=== PATIENT | male | born 1935 | race Caucasian/White ===

== ENCOUNTER 2024-01-02 19:14 | Emergency (ER) | payer MEDICARE, MEDICAID, SELFPAY ==
--- NOTE | ~2024-01-02 | CT_ITS ---
EXAMINATION: CT brain wo con DATE: 01/02/2024 20:05 INDICATION: Anticoagulated patient post unwitnessed fall TECHNIQUE: Computed tomography (CT) of the head was performed without intravenous contrast. Sagittal and coronal reconstructions were performed. The mA was adjusted according to patient size. Iterative reconstruction technique was employed. The dose-length product was 681.00 mGy-cm. COMPARISON: None FINDINGS: No fracture. No acute intracranial hemorrhage, acute infarction or abnormal extra axial fluid collect ion. There is moderate scattered white matter hypoattenuation consistent with chronic small vessel is chemic disease. Symmetric prominence of the sulci and ventricles consistent with moderate to severe a ge-appropriate diffuse cerebral volume loss. No mass/mass effect. Mild mucosal thickening the bilater al ethmoid and maxillary sinuses. The orbits and mastoid air cells are normal. Small amount of debris /cerumen at the left external auditory canal. IMPRESSION: 1. No fracture or acute intracranial process. 2. Age-related changes including moderate to severe diffuse volume loss and moderate scattered white matter hypoattenuation consistent with chronic small vessel ischemic disease. Reviewed, dictated and finalized at location A. IMPRESSION: 1. No fracture or acute intracranial process. 2. Age-related changes including moderate to severe diffuse volume loss and mod erate scattered white matter hypoattenuation consistent with chronic small vess el ischemic disease.
--- NOTE | ~2024-01-02 | XR_ITS ---
EXAMINATION: XR pelvis 1-2V DATE: 01/02/2024 19:55 INDICATION: Unwitnessed fall TECHNIQUE: An anteroposterior view of the pelvis was obtained. COMPARISON: None. FINDINGS: Bone alignment is normal. No fracture. Mild bilateral hip and sacroiliac osteoarthritis. Moderate to severe lower lumbar spondylosis. IMPRESSION: 1. No acute osseous abnormality. Reviewed, dictated and finalized at location A.
--- NOTE | ~2024-01-02 | CT_ITS ---
EXAMINATION: CT cervical spine wo con DATE: 01/02/2024 20:06 INDICATION: Anticoagulated patient post fall TECHNIQUE: Computed tomography (CT) of the cervical spine was performed without intravenous contrast. Automated exposure control and iterative reconstruction technique were employed. The dose-length pro duct was 380.60 mGy-cm. COMPARISON: None FINDINGS: Severe osteoarthritis at the atlantoaxial articulation. 2 additional 3 mm retrolisthesis C4 on C5. Ve rtebral body heights are normal. No fracture. Severe disc height loss at C4-C5 through C6-C7. Moderat e disc height loss at C3-C4 and mild disc height loss at C2-C3. Mild central canal stenosis at C3-C4 through C6-C7. There is also severe multilevel cervical uncovertebral osteoarthritis and moderate to severe facet osteoarthritis which contributes to moderate neural foraminal stenosis on the right at C 3-C4 through C6-C7 and on the left at C4-C5 and C5-C6. There is additional mild neural from stenosis at a few additional cervical levels. There is fusion across the right C3-C4 facet joint. Atherosclero tic calcification is at the bilateral carotid bulbs. Cervical soft tissues are otherwise unremarkable . Mild biapical pleural-parenchymal scarring. There is some smooth septal line thickening in the visu alized upper lungs, right greater than left consistent with mild pulmonary edema. IMPRESSION: 1. Severe cervical spondylosis with no acute osseous abnormality. 2. Mild pulmonary edema in the left upper lungs. Reviewed, dictated and finalized at location A.
[2024-01-02 19:16] VITALS: BP 126/84; PULSE 93; RESP 15; TEMP 36.8; O2SAT 98
--- NOTE | 2024-01-02 19:28 | PC.NURSE ---
Attempted to call [facility] without answer.
--- NOTE | 2024-01-02 19:44 | ED.FALL ---
HPI - Fall General Chief Complaint: Fall Stated Complaint: unwitnessed fall, back pain, poss HI Time Seen by Provider: 01/02/24 19:20 History of Present Illness HPI Narrative: 88-year-old male with a past medical history significant for hypertension, hyperlipidemia, dementia and schizophrenia. He does take Eliquis on review of the medical record brought by EMS. Patient presents today for a unwitnessed fall potentially. He was found on the ground at her nursing facility but not any acute distress not complaining anything with his normal mentation which is alert oriented x1 baseline. He states that he is not any pain anywhere but he was brought in for evaluation of a potential fall. Denies any headache, vision changes, abdominal pain, back pain, fever, chills, chest pain, shortness a breath. He is awake and oriented answering questions at his baseline. Denies any pain otherwise looks comfortable on the stretcher. No focal deficits appreciated. Related Data Allergies Allergy/AdvReac Type Severity Reaction Status Date / Time No Known Allergies Allergy Verified 01/02/24 19:23 Review of Systems Review of Systems: As reviewed above in HPI Exam Narrative: GENERAL: [Well-appearing, well-nourished, and in no acute distress.] HEAD: [Normocephalic, atraumatic.] EYES: [PERRLA and EOMI.] ENT: Nares clear, no rhinorrhea or epistaxis. Mucous membranes moist. NECK: Supple. CHEST: [Clear to auscultation. No respiratory distress.] HEART: [Regular rate and rhythm]. No murmur heard. [Normal peripheral pulses.] ABDOMEN: [Soft, nondistended], [nontender], [No rigidity or guarding] EXTREMITIES: Normal range of motion. [No edema.] SKIN: Warm, dry, no rash. NEURO: [No focal deficits]. Alert and oriented x1 which is baseline, no strength deficits or weakness. No ataxia in the arms or legs. PSYCH: [Normal mood and affect.] Course Vital Signs Vital signs: Vital Signs Temperature 36.8 C 01/02/24 19:16 Pulse Rate 93 01/02/24 19:16 Respiratory Rate 15 01/02/24 19:16 Blood Pressure 126/84 01/02/24 19:16 Pulse Oximetry 98 01/02/24 19:16 Oxygen Delivery Room Air 01/02/24 19:16 Temperature 36.8 C 01/02/24 19:16 Pulse Rate 93 01/02/24 19:16 Respiratory Rate 15 01/02/24 19:16 Blood Pressure 126/84 01/02/24 19:16 Pulse Oximetry 98 01/02/24 19:16 Oxygen Delivery Room Air 01/02/24 19:16 MDM - Fall MDM Narrative Medical decision making narrative: 88-year-old male with a history of hypertension hyperlipidemia, dementia and schizophrenia. He does take Eliquis for unclear reasons on review of the medications from his [facility]. Presents today after he was found on the ground with a potential fall. He has no acute complaints otherwise states he feels fine without any pain is head, chest, belly or back. No weakness or sensory, motor deficits appreciated on examination. He has normal reassuring vital signs. No evidence of trauma or hematoma formation of his head or neck. He states he is not sure if he fell but he was found on the ground but not in any apparent pain or discomfort, worsening comfort. CT head, CT cervical spine and a pelvis x-ray was obtained. He is not any pain does not require any kind of medications at this time. Patient's CT scans were independently reviewed and interpreted by radiology. He has no acute intracranial process, no cervical fractures or dislocations. Pelvis without any fractures or dislocations. He was re-evaluated multiple times without any pain or other symptoms. He is stable for discharge back to his long-term facility at this time. Medical Records Attestation: I reviewed the patient's medical records. Lab Data Attestation: I reviewed the patient's lab results. Imaging Data Attestation: I personally reviewed and interpreted this imaging study as follows: Radiologist's impression: Impressions Pelvis X-Ray 01/02/24 19:56 IMPRESSION: 1. No ac
--- NOTE | 2024-01-02 21:02 | PC.NURSE ---
Codie JUAREZ from [facility] received report. She reported that he is wheelchair bound and is incapable of transferring on his own. She states they think he was attempting to get back in bed from his wheelchair and that is how he fell. She is updated on scan results and ETA for ambulance to go back home.
[2024-01-02 21:11] VITALS: BP 132/92; PULSE 76; RESP 15; O2SAT 97
== END 2024-01-02 23:45 ==
PROVIDERS: Emergency Provider Student in an Organized Health Care Education/Training Program; PCP Internal Medicine
DX: Z04.3 Encounter for examination and observation following other accident (principal); I10 Essential (primary) hypertension; E78.5 Hyperlipidemia, unspecified; F03.90 Unspecified dementia, unspecified severity, without behavioral disturbance, psychotic disturbance, mood disturbance, and anxiety; F20.9 Schizophrenia, unspecified; M47.812 Spondylosis without myelopathy or radiculopathy, cervical region; W19.XXXA Unspecified fall, initial encounter
CPT/HCPCS: 70450; 72125; 72170; 99284

== ENCOUNTER 2025-02-20 20:13 | Emergency (ER) | payer MEDICARE, MEDICAID, SELFPAY ==
[2025-02-20] VITALS (15 sets, daily range): BP systolic 97–123; BP diastolic 61–83; PULSE 90–113; RESP 14–22; TEMP 36.6; O2SAT 95–97
--- NOTE | ~2025-02-20 | CT_ITS ---
CT cervical spine wo con HISTORY: fall COMPARISON: 01/02/2024 TECHNIQUE: Axial images of the cervical spine were obtained. Multiplanar reconstruction in the coronal, sagittal and axial reformats to evaluate for cervical fracture. FINDINGS: The images demonstrate no acute fracture or paravertebral soft tissue swelling. Severe multilevel degenerative changes with disc space narrowing and uncovertebral hypertrophy from C3-C4 to C6-C7. There is facet joint arthropathy contributing to foraminal narrowing. No significant central canal stenosis. The visualized aspect of the upper lungs are clear. IMPRESSION: No acute fracture or subluxation. Severe degenerative changes from C3-C4 through C6-C7. This is unchanged when compared to previous study. All CT scans at this facility are performed using low dose modulation techniques as appropriate to perform exam including the following: automated exposure control; adjustment of the mA and/or kV according to patient size (this includes techniques or standardized protocols for targeted exams where does is matched to indication/reason for exam; i.e. extremities or head); use of iterative reconstruction technique). Reviewed, dictated and finalized at location [facility]. STHESIOLOGIST IMPRESSION: No acute fracture or subluxation. Severe degenerative changes from C3-C4 through C6-C7. This is unchanged when co mpared to previous study. All CT scans at this facility are performed using low dose modulation techniqu es as appropriate to perform exam including the following: automated exposure c ontrol; adjustment of the mA and/or kV according to patient size (this includes techniques or standardized protocols for targeted exams where does is matched to indication/reason for exam; i.e. extremities or head); use of iterative sia nstruction technique).
--- NOTE | ~2025-02-20 | CT_ITS ---
CT brain wo con HISTORY:fall, head injury COMPARISON: 01/02/2024. TECHNIQUE: Axial images were obtained of the head without intravenous contrast. FINDINGS: No acute intracranial hemorrhage, mass effect or midline shift. No extra-axial fluid collections. There is generalized atrophy and chronic white matter microangiopathic changes.Visualized paranasal sinuses and mastoid air cells are clear. IMPRESSION: No acute intracranial hemorrhage or extra axial fluid collections. 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 Reviewed, dictated and finalized at location [facility]. IT PROFESSIONAL IMPRESSION: No acute intracranial hemorrhage or extra axial fluid collections. 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
--- OUTSIDE RECORDS SUMMARY | 2025-02-20 22:10 | XMS_ITS | Clinical Summary ---
Author Organization [facility] Address [address] [place] [address] Care Team Providers Care Keg Washer Name Role Phone Bright Marin MD Primary Care Provider Source Comments [facility],non-owned Affiliates and Associated Physician Practices is amultiple site organization consisting of ambulatory clinics and hospital sitesin [place], [place] and [place]. This disclosure is being madepursuant to the Care Everywhere program and may not contain all information available regarding this patient. Last updated 17.[facility] Allergies No known active allergies Medications * Be aware that medications may not be up to date on this document. Alwaysverify current medications with the patient. SITagliptin (JANUVIA) 50 MG tablet Take 1 tablet by mouth once daily 90 tablet 1 0 Active finasteride (PROSCAR) 5 MG tablet Take 5 mg by mouth once daily Active apixaban (ELIQUIS) 2.5 MG tablet Take 1 (one) tablet by mouth 2 times daily 60 tablet 2 1 Active Additional Information Patient not taking.Reported on 06/06/2020 atorvastatin (LIPITOR) 10 MG tablet Take 1 (one) tablet by mouth at bedtime 30 tablet 2 1 Active QUEtiapine (SEROQUEL) 25 MG tablet Take 1 (one) tablet by mouth 2 times daily 1 Active carvedilol (COREG) 6.25 MG tablet Take 1 (one) tablet by mouth 2 times daily with morning and evening meal 1 Active magnesium oxide (MAG-OX) 400 MG tablet Take 1 (one) tablet by mouth 2 times daily 1 Active thiamine (VITAMIN B-1) 100 MG tablet Take 1 (one) tablet by mouth once daily 1 Active Active Problems Problem Noted Date Diagnosed Date Weakness 06/06/2020 Hepatitis 06/06/2020 Hypotension 06/06/2020 Fall 06/04/2020 Hypokalemia 06/02/2020 Altered mental status 06/02/2020 TARIK (acute kidney injury) 06/02/2020 Shortness of breath 04/26/2020 Atrial fibrillation with rapid ventricular respo nse 04/26/2020 Bilateral edema of lower extremity 04/26/2020 Acute renal failure 06/10/2019 Hypoglycemia 05/14/2019 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 (FLUZONE HIGH-DOSE QUADRIVALENT; 65Y+), 0.7 ML (HD-IIV4) 05/16/2019(Deferred: Patient Refused - States he will get this at his pharmacy) Social History Tobacco Use Types Packs/Day Years Used Date Smoking Tobacco: Former Smokeless Tobacco: Never Alcohol Use Standard Drinks/Week Comments Not Currently 0 (1 standard drink = 0.6 oz pur e alcohol) Sex and Gender Information Value Date Recorded Sex Assigned at Not on file Legal Sex Male 2:49 PM [employer] Gender Identity Not on file Sexual Orientation Not on file Last Filed Vital Signs Vital Sign Reading Time Taken Comments Blood Pressure 88/64 06/17/2020 3:38 PM [employer] Pulse 72 06/17/2020 3:38 PM [employer] Temperature 36.6 C (97.8 F) 06/17/2020 3:38 PM [employer] Respiratory Rate 20 06/17/2020 3:38 PM [employer] Oxygen Saturation 99% 06/17/2020 3:38 PM [employer] Inhaled Oxygen Concentration - - Weight 61.2 kg (134 lb 14.4 oz) 021 11:42 PM [employer] Height 167.6 cm (5' 6) 06/06/2020 11:4 2 PM [employer] Body Mass Index 21.77 06/06/2020 11:42 PM [employer]ANT Plan of Treatment Health Maintenance Due Date Last Done Comments DTAP/TDAP/TD VACCINES (1 - Tdap) 1956 PNEUMOCOCCAL VACCINE 50+ (1 of 1 - PCV) 1987 ZOSTER VACCINE (1 of 2) 1987 Respiratory Syncytial Virus (RSV) Vaccine Pt: or over 60 yrs (1 - 1-dose 75+ series) 2012 DEPRESSION SCREENING 04/10/2024 COVID-19 VACCINE (1 - 2023-2 5 season) 2024 INFLUENZA VACCINE (#1) 2024 HEPATITIS B VACCINE Aged Out No longe r eligible based on patient's age to complete this topic HIB VACCINE Aged Out No longer eligi ble based on patient's age to complete this topic HPV VACCINE Aged Out No longer eligi ble based on patient's age to complete this topic MENINGOCOCCAL (Group B) VACC INE SHARED DECISION-MAKING Aged Out No longer eligibl e based on patient's age to complete this topic MENINGOCOCCAL GROUPS A/C/Y/W VACCINE Aged Out No longer eligible b ased on patient's age to complete this topic Insurance [employer] [facility] Address: [id number] [place] [address] MEDICARE Advance Directives * Full Code (Latest Code Status on File) Date Activated Date Inactivated Comments 06/09/2020 3:34 AM 06/17/2020 9:53 PM * Full Code Date Activated Date Inactivated Comments 06/07/2020 1:23 AM 06/09/2020 3:34 AM * Full Code Date Activated Date Inactivated Comments 06/02/2020 11:36 AM 06/05/2020 2:12 PM * Full Code Date Activated Date Inactivated Comments 06/02/2020 11:31 AM 06/02/2020 11:36 AM * Full Code Date Activated Date Inactivated Comments 04/26/2020 10:48 PM 05/01/2020 7:02 PM Care Teams Keg Washer Relationship Specialty Start Date End Date Bright Marin MD PCP - General Internal Medicine 03/15/19
--- OUTSIDE RECORDS SUMMARY | 2025-02-20 22:10 | XMS_ITS | Data Portability ---
Author Organization [place] - [facility] [email or web address], Main Office Address [address] [place] [address] Assessment No assessment recorded. Plan of Treatment Reminders Order Date Submit Date Provider Last Modified By Organization Details Last Modified Time Details Appointments None recorded. Lab culture, urine + sensitivity 2022 023 [facility] ([facility]), [address] [place], [address], 3 12:09:56 Referral None recorded. Procedures foreskin manipulatio n including lysis of preputial adhesions and stretching (PROC) 2022 023 JOSÉ MIGUEL Not available 3 05:01:45 Surgeries None recorded. Imaging None recorded. Medication Orders levofloxaci n 500 mg tablet 2022 023 [email or web address] Not available 3 12:55:31 lidocaine HCl 20 mg/mL (2 %) injection solution 2022 023 [email or web address] Not available 3 11:59:26 nystatin-tr iamcinolone 100,000 unit/g-0.1 % topical cream 2022 023 [email or web address] Not available 3 12:55:31 Augmentin 875 mg-125 mg tablet 2022 023 [facility] #[id number], [address], [place], [address], 3 10:37:26 Patient TargetsNo targets recorded. Patient InstructionsNo instructions recorded. Reason for Referral None Reported. Results Created Date Observation Date Name Description Value Unit Range Abnormal Flag Note LastModifiedBy Organization Detail LastModifiedTime 11/20/19 22 11/19/2021 CT, abdom en + pelvi s, w/o contr ast No observ ation record ed. [id number] [facility] [address] [place], [address], 06/08/2022 21:49:08 11/20/19 22 11/19/2021 US, renal No observ ation record ed. [id number] [facility] [address] [place], [address], 06/08/2022 21:49:08 Result Notes None recorded. Problems Name Problem SNOMED Code Status Onset Date Resolution Date Notes Provider Name and Address Organization Details Recorded Time Penile swelling 205799012 Active 2022 Jim Stevens NP [address], [place], [address], [employer] [facility] [employer] [facility] 3 10:30:06 Cellulitis of groin 01315384 Active 2022 Jim Stevens NP [address], [place], [address], [employer] [facility] [employer] [facility] 3 10:30:14 Pyuria 4125065 Active 2022 Jim Stevens NP [address], [place], [address], [employer] [facility] [employer] [facility] 3 10:42:17 Acute urinary tract infection 984502182 Active 2022 Jim Stevens NP [address], [address], [place], [address], [employer] [facility] [employer] [facility] 3 17:11:28 Urinary tract infection caused by Pseudomonas 4008039420206 02 Active 2022 Jim Stevens NP [address], [place], [address], [employer] [facility] [employer] [facility] 3 17:11:47 Paraphimosi s 16496598 Active 2022 Jim Stevens NP [address], [place], [address], [employer] [facility] [employer] [facility] 3 12:06:21 Balanitis 76205678 Active 2022 Jim Stevens NP [address], [place], [address], [employer] [facility] [employer] [facility] 3 12:07:15 Retention of urine 679794128 Active 2022 Jim Stevens NP [address], [place], [address], [employer] [facility] [employer] [facility] 3 14:56:42 Penile hypospadias 924062895 Active 2022 Jim Stevens NP [address], [place], [address], [employer] [facility] [employer] [facility] 3 14:57:03 Problem Notes None recorded. Medical Equipment None Reported. Allergies No known drug allergies Medications Name Sig Start Date Stop Date Status Note LastModified by Organization Details LastModified Time lidocaine 2% viscous soln active Not Available Not Available Not Available quetiapine 25 mg tablet 12/20 completed Not Available Not Available Not Available lidocaine HCl 10 mg/mL (1 %) injection solution 12/20 completed Not Available Not Available Not Available carvedilol 6.25 mg tablet TAKE 1 TABLET BY MOUTH TWICE DAILY active Not Available Not Available No t Available doxycyclin e hyclate 100 mg capsule 12/20 completed Not Available Not Available Not Available atorvastat in 10 mg tablet active Not Available Not Available Not Available Lidocaine Viscous 2 % mucosal solution active Not Available Not Available Not Available fluconazol e 150 mg tablet 12/20 completed Not Available Not Available Not Available cephalexin 250 mg capsule Take 1 capsule every day by oral route for 30 days. active Start after full course of cipro for ppx Not Available Not Available Not Available midodrine 5 mg tablet TAKE 1 TABLET BY MOUTH THREE TIMES DAILY active Not Available Not Available No t Available thiamine HCl (vitamin B1) 100 mg tablet Take by oral route. 2021 active Not Available Not Available Not Avai lable valacyclov ir 500 mg tablet 12/20 completed Not Available Not Available Not Available ciprofloxa marcus 500 mg tablet Take 1 tablet every 12 hours by oral route for 10 days. active Not Available Not Available No t Available ceftriaxon e 1 gram solution for injection 12/20 completed Not Available Not Available Not Available methenamin e hippurate 1 gram tablet Take 1 tablet twice a day by oral route for 90 days. active Not Available Not Available No t Available magnesium oxide 400 mg (241.3 mg magnesium) tablet Take by oral route. 2021 active Not Available Not Available Not Avai lable Vitamin C 1,000 mg tablet Take 1 tablet twice a day by oral route for 90 days. active Not Available Not Available No t Available gentamicin 0.3 % eye drops active Not Available Not Available Not Available cephalexin 500 mg capsule active Not Available Not Available Not Available nystatin-t riamcinolo ne 100,000 unit/g-0.1 % topical cream APPLY TO THE AFFECTED AREA(S) BY TOPICAL ROUTE 2 TIMES PER DAY IN THE MORNING AND EVENING for 14 days active Not Available Not Available No t Available lidocaine HCl 20 mg/mL (2 %) injection solution Take 15 mL by injectio n route. 2022 active Not Available Not Available Not Avai lable levofloxac in 500 mg tablet Take 1 tablet every 24 hours by oral route for 10 days. active Not Available Not Available No t Available levofloxac in 750 mg tablet active Not Available Not Available Not Available diltiazem 30 mg tablet active Not Available Not Available Not Available ferrous sulfate 325 mg (65 mg iron) tablet,del ayed release Take by oral route. 2021 active Not Available Not Available Not Avai lable cefdinir 300 mg capsule active Not Available Not Available Not Available clotrimazo le 1 % topical cream 12/20 completed Not Available Not Available Not Available finasterid e 5 mg tablet TAKE 1 TABLET BY MOUTH EVERY DAY active Not Available Not Available No t Available amoxicilli n 875 mg-potassi um clavulanat e 125 mg tablet Take 1 tablet every 12 hours by oral route for 10 days. active Not Available Not Available No t Available escitalopr am 10 mg tablet active Not Available Not Available Not Available escitalopr am 20 mg tablet active Not Available Not Available Not Available cholestyra mine (with sugar) 4 gram powder for susp in a packet active Not Available Not Available Not Available nitrofuran toin monohydrat e/macrocry stals 100 mg capsule 12/20 completed Not Available Not Available Not Available Januvia 50 mg tablet TAKE 1 TABLET BY MOUTH EVERY DAY active Not Available Not Available No t Available Anecream 4 % topical active Not Available Not Available No t Available Xifaxan 550 mg tablet active Not Available Not Available Not Available Eliquis 2.5 mg tablet TAKE 1 TABLET BY MOUTH TWICE DAILY active Not Available Not Available No t Available meropenem 500 mg/50 mL in 0.9% sodium chloride intravenou s piggyback 12/20 completed Not Available Not Available Not Available Firvanq 50 mg/mL oral solution active Not Available Not Available Not Available Vitals Date Recorded Body height Provider Name an d Address Organization Details Last Updated DateTime 08/19/2022 165.1 cm Cindy Alex [facility] 08/19/2022 09:56:27 Date Recorded Oxygen saturation Oxygen saturation in Arterial blood by Pulse oximetry Heart rate Body temperature Provider Name and Address Organization Details Last Updated DateTime 08/19/2022 91 % 91 % 39 /min 97.7 [degF] Carlos Stevenson [facility] [employer] [facility] 3 10:04:33 Date Recorded Body height Body temperature Oxygen saturation Oxygen saturation in Arterial blood by Pulse oximetry Heart rate Provider Name and Address Organization Details Last Updated DateTime 3 165.1 cm 97.2 [degF] 99 % 99 % 59 /min Carlos Stevenson [facility] [employer] [facility] 3 11:10:20 Date Recorded Body height Oxygen saturation Oxygen saturation in Arterial blood by Pulse oximetry Body temperature Heart rate Systolic And Diastolic Provider Name and Address Organization Details Last Updated DateTime 3 165.1 cm 97 % 97 % 98.1 [degF] 69 /min 94/56 mm[Hg] Carlos Stevenson [facility] [employer] [facility] 3 11:58:09 Date Recorded Body height Oxygen saturation Oxygen saturation in Arterial blood by Pulse oximetry Heart rate Body temperature Systolic And Diastolic Provider Name and Address Organization Details Last Updated DateTime 2 165.1 cm 94 % 94 % 113 /min 98.1 [degF] 131/88 mm[Hg] Not Available [facility] 3 21:48:25 Social History Question Answer Notes LastModified by Organizat ion Details LastModified Time Tobacco Smoking Status Never Smoker Not Available [facility] 06/08/2022 21:48:09 What Is Your Level Of Caffeine Consumption? None [id number] Information not available 06/08/2022 What Was The Date Of Your Most Recent Tobacco Screening? 09/19/2022 Information not available 09/19/2022 Has Tobacco Cessation Counseling Been Provided? No [id number] Information not available 06/08/2022 Sex: Unknown Functional Status Question Answer Note LastModified by Organizat ion Details LastModified Time Do you use any illicit or recreational drugs? No [id number] Information not available 06/08/2022 Do you or have you ever used any other forms of tobacco or nicotine? No [id number] Information not available 06/08/2022 What is your level of alcohol consumption? None [id number] Information not available 06/08/2022 Mental Status None recorded. Family History Nothing Reported. Medical History Condition Response HEART DISEASE/HEART PROBLEMS Y DIABETES, TYPE Y KIDNEY DISEASE Y UTI Y URINARY/BLADDER/KIDNEY PROBLEMS Y USE OF BLOOD THINNERS Y HYPERTENSION Y Past Encounters Encounter ID Performer Location Encounter Start Date Encounter Closed Date Diagnosis/Indication Diagnosis SNOMED-CT Code Diagnosis ICD10 Code Diagnosis IMO Codes Diagnosis Note [id number] Jim Stevens NP [facility] [address] [address] 12/20/2021 00:00:00 12/20/2021 15:19:20 [id number] Jim Stevens NP [facility] [address] [id number] 08/19/2022 09:54:46 08/19/2022 10:38:36 Penile swelling 877041860 N48.89 Cellulitis of groin 8836 1008 L03.314 keep groing elevated as much as possible to help reduce swelling. Start Augmentin to cover for suspected uti and cellulitis . Sending urine for culture. Follow-up next week for recheck. Pyuria 3051390 R82.[id number] [facility] [address] [address] 09/02/2022 10:56:07 09/02/2022 12:08:41 Penile swelling 354457916 N48.89 Paraphimosis 50313949 N4 7.2 Successful ly reduced in office. Nursing staff to always replace foreskin after it has been retracted. Follow-up in 2 weeks for re-check. Acute urin madhuri tract infection 225577689 N39.0 UA is still purulent. Repeat course of levofloxac in for 10 days. Balanitis 75948923 N48.1 Continue cream for balanitis. [id number] Jim Stevens NP [facility] [address] [id number] 09/19/2022 11:44:29 09/19/2022 12:39:21 Retention of urine 337126346 R33.9 Penile hypospadias 95083 8000 Q54.1 Penile pain and swelling. Has been on Augmentin and levaquin without much improvemen t. Plan for suprapubic tube placement to bypass urethra. Will need to come off Eliquis 3 days prior to surgery. Will need to obtain clearance. Pre-op lab orders placed. Health Concerns Section Related Observation LastModified by Organization Detai ls LastModified Time None Recorded Concern Status LastModified by Organization Details LastModified Time None Recorded Advance Directives Directive None Recorded Payers Insurance Date Sequence Insurance Name Policy Number Policy Lazo Covered Member ID Lazo Member ID Guarantor Name 01/10/2025 2 [facility] (MEDICAID HMO) [id number] Shaw Fisher [id number] Shaw Fisher 01/10/2025 1 [place] Shaw Fisher [id number] Shaw Fisher 10/16/2023 2 [place] Shaw Fisher [id number] Shaw Fisher 01/10/2025 3 [place] [facility] OF PUBLIC AID Shaw Fisher [id number] Shaw Fisher Notes Date Note Type Note Provider Name and Address Organization Details Recorded Time 08/19/2022 text/html ROS as noted in the [facility] 08/19/22Patient presents to the office with c/o of one month hx of penile pain, swelling, and cloudy urine. He denies any abdominal pain, fevers, or hematuria. Upon physical exam penis is swollen and scrotum is erythematous. Iatrogenic hypospadias noted. Patient is very tender on exam. No bleeding from urethra noted. Cath draining yellow purulent urine. Jim Stevens NP [address], [place], [address], [employer] 08/19/2022 10:42:50 09/02/2022 text/html ROS as noted in the [facility] 08/19/22Patient presents to the office with c/o of one month hx of penile pain, swelling, and cloudy urine. He denies any abdominal pain, fevers, or hematuria. Upon physical exam penis is swollen and scrotum is erythematous. Iatrogenic hypospadias noted. Patient is very tender on exam. No bleeding from urethra noted. Cath draining yellow purulent urine. 09/02/2022atient returns to the office for follow-up on uti and penile swelling. Patient had pseudomonas uti that was treated levofloxacin. He has been using nystatin/triamcino lone for balanitis with moderate improvement in swelling. Still has pretty severe pain. Upon further exam patient appears to have paraphimosis with tight band around foreskin. Manual pressure applied for 10 minutes with topical lidocaine. Attempted reduction, but patient was not able to tolerate due to pain. Dorsal penile block performed in office with 15 cc of lidocaine. Paraphimosis successfully reduced in office. Jim Stevens NP [address], [place], [address], [employer] 09/12/2022 15:42:07 09/19/2022 text/html ROS as noted in the [facility] 08/19/22Patient presents to the office with c/o of one month hx of penile pain, swelling, and cloudy urine. He denies any abdominal pain, fevers, or hematuria. Upon physical exam penis is swollen and scrotum is erythematous. Iatrogenic hypospadias noted. Patient is very tender on exam. No bleeding from urethra noted. Cath draining yellow purulent urine. 3Patient returns to the office for follow-up on uti and penile swelling. Patient had pseudomonas uti that was treated levofloxacin. He has been using nystatin/triamcino lone for balanitis with moderate improvement in swelling. Still has pretty severe pain. Upon further exam patient appears to have paraphimosis with tight band around foreskin. Manual pressure applied for 10 minutes with topical lidocaine. Attempted reduction, but patient was not able to tolerate due to pain. Dorsal penile block performed in office with 15 cc of lidocaine. Paraphimosis successfully reduced in office. 3Patient here for follow-up. Reports pain and swelling improved. On physical exam patient is still very tender. Foreskin retracted. Dr. Mercado in office and had him evaluate. States no concern for paraphimosis given iatrogenic hypospadias is past coronal sulcus. Recommending placement of SP tube to bypass urethra. Patient is agreeable. He takes Eliquis 2.5 mg bid for afib. Will need clearance to come off. Jim Stevens NP [address] [facility], [place], [address], [place] [facility] 09/19/2022 14:59:34
--- NOTE | 2025-02-20 22:34 | ED_ITS ---
HPI - Fall General Chief Complaint: Fall Stated Complaint: fall, head injury Time Seen by Provider: 02/20/25 21:35 Source: patient and RN notes reviewed Mode of arrival: EMS Limitations: dementia History of Present Illness HPI Narrative: Patient presents from [facility] after report of a fall resulting in a head injury. He reportedly fell from his wheelchair and sustained a laceration to posterior head. A&O x1 which is his baselien due to dementia by report. Patient reportedly DNR. He denies any pain on my exam. Denies headache, chest pain, abdominal pain. Related Data Allergies Allergy/AdvReac Type Severity Reaction Status Date / Time No Known Allergies Allergy Verified 01/02/24 19:23 [facility] Past Medical History Medical History (Updated 02/20/25 @ 22:57 by Gladys Hoang MD) Chronic anticoagulation Chronic atrial fibrillation, unspecified Chronic obstructive pulmonary disease, unspecified Type 2 diabetes mellitus without complications Unspecified dementia, unspecified severity, without behavioral disturbance, psychotic disturbance, mood disturbance, and anxiety Social History Social History (Updated 02/20/25 @ 22:54 by Gladys Hoang MD) Social History: Code Status: POLST signed 04/27/21 lists Do Not Attempt Resuscitation / DNR [facility] Additional living arrangements comments: [facility] in [place] since 03/23/2021 Spiritual care concerns: No (Shinto) Exam Narrative: GENERAL: Well-appearing, well-nourished, and in no acute distress. HEAD: Subcentimeter laceration on posterior scalp; tissue is already together, irrigation does not reveal ability to separate layers into anything that would require repair with sutures or richelle. EYES: Non injected, non icteric ENT: Nares clear, no rhinorrhea or epistaxis. Gross auditory acuity intact. NECK: Supple. No meningismus. CHEST: Speaking in full sentences. No respiratory distress. HEART: Regular rate . . ABDOMEN: Soft, nondistended. No rigidity or guarding. Not peritoneal EXTREMITIES: Normal range of motion. SKIN: Warm, dry. NEURO: No focal deficits. Alert and oriented to self. Answering simple yes/no questions. Normal speech without aphasia or dysarthria. PSYCH: Congruent mood and affect. Course Vital Signs Vital signs: Vital Signs Temperature 97.9 F 02/20/25 20:25 Pulse Rate 98 02/20/25 20:25 Respiratory Rate 18 02/20/25 20:25 Blood Pressure 123/83 02/20/25 20:25 Pulse Oximetry 97 02/20/25 20:25 Oxygen Delivery Room Air 02/20/25 20:25 Temperature 97.9 F 02/20/25 20:25 Pulse Rate 81 02/21/25 00:46 Respiratory Rate 15 02/21/25 00:46 Blood Pressure 92/56 L 02/21/25 02:46 Pulse Oximetry 96 02/20/25 22:01 Oxygen Delivery Room Air 02/20/25 20:25 MDM - Fall MDM Narrative Medical decision making narrative: 89 male with history of dementia A&Ox1 here and reportedly at baseline presents after a fall from wheelchair. In the emergency department they are afebrile with vital signs within normal limits. Medication list is reviewed and shows that patient is on apixaban for history of unspecified atrial fibrillation. He does have a subcentimeter laceration on posterior scalp. Irrigated extensively but tissues are already approximated, nothing to suture or staple. Advised RN on bandaging. Otherwise stable to return to facility. EMS transportation arranged due to dementia and wheelchair/bedbound status. Rx for NSAIDs. Differential Diagnosis Differential diagnosis: Likely other (intracranial hemorrhage; laceration; C spine injury) Imaging Data Radiologist's impression: Impressions Head CT 02/20/25 21:01 IMPRESSION: No acute intracranial hemorrhage or extra axial fluid collections. 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 Cervical Spine CT 02/20/25 21:09 IMPRESSION: No acute fracture or subluxation. Severe degenerative changes from C3-C4 through C6-C7. This is unchanged when compared to previous study. All CT scans at this facility are performed using low dose modulation techniques as appropriate to perform exam including the following: automated exposure control; adjustment of the mA and/or kV according to patient size (this includes techniques or standardized protocols for targeted exams where does is matched to indication/reason for exam; i.e. extremities or head); use of iterative reconstruction technique). Discharge Plan Discharge Clinical Impression: Degenerative disc disease, cervical, Fall Laceration of head Qualifiers: Encounter type: initial encounter Location of open wound of head: scalp Foreign body presence: without foreign body Qualified Code(s): S01.01XA - Laceration without foreign body of scalp, initial encounter Patient Disposition: [place] Long Term/Asst Living Condition: Stable Instructions: Antibiotic Form, Laceration (DC), Fall Prevention for Older Adults (ED), Degenerative Disc Disease (ED) Additional Instructions: No bleeding in brain or fracture of skull/bones in neck. The laceration of posterior scalp was irrigated but <1cm and tissue already coming together, no sutures or richelle. Practice good wound care, keeping the area clean/warm/dry. Patient may not be able to communicate that is in pain so often acetaminophen/Tylenol frequently as needed over the next few days. Continue to avoid NSAIDs given he is blood thinner. Follow-up with primary care physician. Return to the emergency department any new or worsening symptoms. Patient Language: Hebrew Prescriptions: New acetaminophen 650 mg tablet extended release 650 mg PO Q8H PRN (Reason: pain) Qty: 20 0RF Follow-up/Referrals: Donis,MD Valentin [Primary Care Provider, Unknown] Stand Alone Forms: Fpc Discharge Time of Disposition: 22:58
[2025-02-20] MEDS: ACETAMINOPHEN ELIXIR 325 MG/10.15 ML UDC 650 MG PO (23:08)
[2025-02-21] VITALS (10 sets, daily range): BP systolic 92–97; BP diastolic 56–69; PULSE 80–99; RESP 15–17
--- NOTE | 2025-02-21 03:12 | PC.NURSE ---
report given to ems crew and given patient paperwork. all questions answered. patient stable on discharge home.
== END 2025-02-21 03:13 ==
PROVIDERS: Emergency Provider Student in an Organized Health Care Education/Training Program; PCP Internal Medicine
DX: S01.01XA Laceration without foreign body of scalp, initial encounter (principal); M50.31 Other cervical disc degeneration, high cervical region; M50.321 Other cervical disc degeneration at C4-C5 level; M50.322 Other cervical disc degeneration at C5-C6 level; M50.323 Other cervical disc degeneration at C6-C7 level; W05.0XXA Fall from non-moving wheelchair, initial encounter; I48.0 Paroxysmal atrial fibrillation; Z79.01 Long term (current) use of anticoagulants; J44.9 Chronic obstructive pulmonary disease, unspecified; E11.9 Type 2 diabetes mellitus without complications; F03.90 Unspecified dementia, unspecified severity, without behavioral disturbance, psychotic disturbance, mood disturbance, and anxiety
CPT/HCPCS: 70450; 72125; 99284; A9270